=== PATIENT | female | born 1985 | race African-American/Black ===

== ENCOUNTER 2020-06-27 09:54 | Emergency (ER) | payer MEDICAID ==
[~2020-06-27] VITALS: Ht 165.1 cm; Wt 76.7 kg
[2020-06-27 09:59] VITALS: BP 148/85
--- NOTE | 2020-06-27 10:00 | NUR ---
Patient ambulated to bed 12 with steady/even gait.
--- NOTE | 2020-06-27 10:04 | NUR ---
Dr. Pena is evaluating patient in triage room.
--- NOTE | 2020-06-27 10:05 | NUR ---
35 y/o F brought in from home with c/c vaginal bleeding. Patient presents A&Ox4, ambulatory and states vaginal bleeding 1 day with small blood clots. Patient states no fully saturated pads, however, blood clot x 2;quarter in size and associated supbrapubic pain. Patient reports pain 3/10, cramping/intermittent, non-radiating pain "going on a few days now" Patient denies any vaginal discharge, dysuria, N/V/D, fever/chills, headache, dizziness, blurry vision, SOB. Patient states no urinary symptoms and normal bowel movements. T1 A0 L1, LMP: 05/20/2020. Pt denies any medications prior to arrival. Patient placed into gown. vehicle monitor technician in place. No respiratory distress noted; respirations even/unlabored. Bed locked in lowest position, side rails x 1, call light in reach. PMH/Meds/Sx: Denies NKA
--- NOTE | 2020-06-27 10:07 | NUR ---
Patient ambulated to restroom with steady/even gait; provided urine sample.
--- NOTE | 2020-06-27 10:08 | NUR ---
Urine sample collected, walked to lab and handed to CPT. Jeremiah
--- NOTE | 2020-06-27 10:14 | NUR ---
Lab at bedside.
[2020-06-27 10:28] LABS: EOSINOPHILS # (AUTO) 0.1 K/uL (0-0.4); EOSINOPHILS % (AUTO) 1.7 % (0.0-4.0); HEMOGLOBIN 11.7 g/dL (12.0-16.0); LYMPHOCYTES # (AUTO) 1.6 K/uL (2.5-16.5); LYMPHOCYTES % (AUTO) 33.5 % (20.5-51.1); MEAN CORPUSCULAR HEMOGLOBIN 26 pg (27-31); MEAN CORPUSCULAR HGB CONC 32 g/dL (33-37); MEAN CORPUSCULAR VOLUME 81.6 fL (80-94); MONOCYTES # (AUTO) 0.4 K/uL (0.8-1.0); MONOCYTES % (AUTO) 7.6 % (1.7-9.3); NEUTROPHILS # (AUTO) 2.7 K/uL (1.8-7.7); NEUTROPHILS % (AUTO) 56.2 % (42.2-75.2); PLATELET COUNT (AUTO) 368 K/uL (140-450); RED BLOOD CELL COUNT(AUTO) 4.53 MIL/uL (4.20-5.40); WHITE BLOOD COUNT (AUTO) 4.8 K/uL (4.8-10.8)
--- NOTE | 2020-06-27 10:34 | NUR ---
Ultrasound at bedside.
[2020-06-27 10:42] LABS: APPEARANCE,URINE HAZY (CLEAR); BILIRUBIN,URINE NEGATIVE (NEGATIVE); BLOOD, URINE 3+ (NEGATIVE); COLOR,URINE DARK YELLOW (YELLOW); LEUKOCYTE ESTERASE ,URINE NEGATIVE (NEGATIVE); NITRITE, URINE NEGATIVE (NEGATIVE); PH,URINE 5.5 (5.0-9.0); UGLUCOSE NEGATIVE (NEGATIVE)
[2020-06-27 11:05] LABS: RBC,URINE 11-20 (MOD) /HPF (0-5); WBC,URINE 0-5 /HPF (0-5)
--- NOTE | 2020-06-27 11:05 | NUR ---
Patient presents with both eyes open in position of comfort. [place] provided. teletypesetter monitor in place. Respirations even/unlabored. All pt needs met at this time. Bed locked in lowest position, side rails x 1, call light in reach.
--- NOTE | 2020-06-27 11:12 | NUR ---
Lab at bedside for blood bank redraw.
--- NOTE | 2020-06-27 12:08 | NUR ---
Dr. Pena is reevaluating patient at bedside.
--- NOTE | 2020-06-27 12:08 | NUR ---
Patient resting in position of comfort; semi-fowlers. nurse monitoring remains in place. Equal chest rise and fall. Bed locked in lowest position, side rails x 1, call light in reach.
[2020-06-27 12:25] VITALS: BP 142/87
--- NOTE | 2020-06-27 12:25 | NUR ---
Patient discharged with v/s stable. Written and verbal after care instructions given and explained. Patient verbalized understanding. Ambulatory with steady gait. All questions addressed prior to discharge. Advised to follow up with PMD.
== END 2020-06-27 12:25 | disposition home or self-care (01) ==
LOC: MED 09:54
DX: O03.9 Complete or unspecified spontaneous abortion without complication (principal)
CPT/HCPCS: 36415; 76817; 81001; 84702; 85025; 86900; 86901; 99284

== ENCOUNTER 2020-06-30 11:38 | Emergency (ER) | payer MEDICAID ==
[~2020-06-30] VITALS: Ht 165.1 cm; Wt 77.1 kg
[2020-06-30 11:56] VITALS: BP 117/74
--- NOTE | 2020-06-30 12:38 | NUR ---
35 YEAR OLD FEMALE COMPLAINS OF VAGINAL BLEEDING X 3 DAYS. PER PT SHE IS 5 WEEKS . PT DENIES PAIN, NAUSEA, VOMITTING. PT AOX4, BREATHING EVEN AND UNLABORED, SKIN WARM AND DRY. BED IN LOWEST POSITION, LOCKED, BED RAIL UPX1. PMH - HTN ALLERGIES - NKA
[2020-06-30 13:46] VITALS: BP 115/70
--- NOTE | 2020-06-30 13:47 | NUR ---
Patient discharged with v/s stable. Written and verbal after care instructions about miscarriage given and explained. Patient verbalized understanding. Ambulatory with steady gait. All questions addressed prior to discharge. Advised to follow up with PMD.
== END 2020-06-30 13:47 | disposition home or self-care (01) ==
LOC: MED 11:38
DX: O03.9 Complete or unspecified spontaneous abortion without complication (principal)
CPT/HCPCS: 36415; 84702; 99283